=== PATIENT | male | born 1970 | race Caucasian/White ===

== ENCOUNTER 2017-01-04 20:30 | Emergency (ER) | payer BC ==
[2017-01-04] MEDS ORDERED: HYDROmorphone 1 MG/ML 1 ML SYRINGE IVP STA (21:08)
[2017-01-04] MEDS ORDERED: SODIUM CHLORIDE 0.9% 500 ML IV STA (21:08)
--- NOTE | 2017-01-04 21:12 | ED ---
Upper Extremity HPI - General Chief Complaint: Extremity Injury, Upper Stated Complaint: R arm injury Time Seen by Provider: 01/04/17 21:03 Source: patient Mode of arrival: ambulatory Limitations: no limitations - History of Present Illness Initial Comments: 6-year-old man who presents with complaint that he is having right shoulder pain. The patient has history of previous shoulder dislocation and states this feels similar. Just before arrival here he was any active playing volleyball, attempted to serve the ball with his right arm and felt a pop. He then had severe right shoulder pain and inability to move the arm without worsening the pain. The patient states it was identical to previous dislocation. Patient denies numbness of the arm though there is some tingling of the hand. No loss of strength of the hand. He is right-handed. MD Complaint: Injury to:: right, shoulder -: minutes(s) Other Extremity Injury: Shoulder: Right Other Injuries: none Handedness: right Severity scale (1-10): 10 Improves With: immobilization Worsens With: movement of extremity Context: sports-related injury Associated Symptoms: heard/felt popping sensat - Related Data Home Medications Medication Instructions Recorded Confirmed Ibuprofen [Motrin] 800 mg PO ONCE PRN 01/04/17 01/04/17 Previous Rx's Medication Instructions Recorded Hydrocodone/Acetaminophen [[place] 1 each PO Q6HR PRN #20 tab 01/04/17 5-325] Ibuprofen [Motrin] 600 mg PO Q8HR PRN #20 tab 01/04/17 Allergies Allergy/AdvReac Type Severity Reaction Status Date / Time No Known Allergies Allergy Verified 01/04/17 21:32 Review of Systems ROS Statement: Those systems with pertinent positive or pertinent negative responses have been documented in the HPI. ROS Other: All systems not noted in ROS Statement are negative. Respiratory: Denies: cough, dyspnea Cardiovascular: Denies: chest pain Musculoskeletal: Reports: as per HPI, arthralgia Skin: Denies: rash Neurological: Denies: weakness, numbness, paresthesias Past Medical History Past Medical History: No Reported History History of Any Multi-Drug Resistant Organisms: None Reported Past Surgical History: Orthopedic Surgery Additional Past Surgical History / Comment(s): bilateral knee Past Psychological History: No Psychological Hx Reported Smoking Status: Never smoker Past Alcohol Use History: Occasional Past Drug Use History: None Reported General Exam Limitations: no limitations General appearance: alert, in distress (Patient does appear to be having shoulder pain.) Head exam: Present: atraumatic, normocephalic Neck exam: Present: full ROM. Absent: tenderness Respiratory exam: Present: normal lung sounds bilaterally. Absent: respiratory distress, wheezes, rales, rhonchi, stridor Cardiovascular Exam: Present: regular rate, normal rhythm, normal heart sounds, other (Radial pulses and capillary refill normal to the right hand.) Extremities exam: Present: tenderness, normal capillary refill, other (There does appear to be an evidence right shoulder dislocation with step off at the shoulder. Patient refuses active and passive range of motion. Exam of the remainder of the extremity is within normal limits. Intact pulses, strength and sensation of the hand.). Absent: normal inspection, full ROM Back exam: Absent: vertebral tenderness Neurological exam: Present: alert. Absent: motor sensory deficit Skin exam: Present: warm, dry, intact, normal color. Absent: rash Course Vital Signs 01/04/17 01/04/17 01/04/17 20:33 21:46 21:47 Temperature 99.6 F Pulse Rate 66 69 64 Respiratory 18 18 18 Rate Blood Pressure 113/66 120/69 145/70 O2 Sat by Pulse 97 100 100 Oximetry Procedures - Orthopedic Joint Reduction Joint #1 Consent Obtained: verbal consent Time Out Performed: Yes Side: right Joint Reduction Location: shoulder Analgesia: procedural sedation Shoulder Technique Used (if applicable): external rotation Post-Reduction Neuro Exam: intact Post-Reduction Vascular Exam: intact Post Reduction X-Ray Obtained: Yes Post Reduction X-Ray Results: reduced Splint Applied: Yes (Sling) Patient Tolerated Procedure: well - Procedural Sedation Procedural Sedation Start Time: 21:53 Procedural Sedation Stop Time: 22:10 Indications: fracture/dislocation reduction ASA Class: I Mallampati Airway Score: 2 Preparation: groundwater monitoring technician applied, pulse oximeter, supplemental O2 applied, suction/airway equipment at bedside, IV secured Complications: none Patient Tolerated Procedure: well Disposition Clinical Impression: Dislocation of shoulder region Disposition: HOME SELF-CARE Condition: Good Instructions: Shoulder Dislocation (ED) Prescriptions: Hydrocodone/Acetaminophen [[place] 5-325] 1 each PO Q6HR PRN #20 tab PRN Reason: Pain Ibuprofen [Motrin] 600 mg PO Q8HR PRN #20 tab PRN Reason: Pain Referrals: Som Calvillo MD [Primary Care Provider] - 1-2 days Srinath Mayer MD [STAFF PHYSICIAN] - 1-2 days
[2017-01-04] MEDS ORDERED: ETOMIDATE 2 MG/ML 10 ML VIAL IVP STA (21:38)
--- NOTE | 2017-01-04 21:40 | XR ---
EXAMINATION TYPE: XR shoulder complete RT DATE OF EXAM: 01/04/2017 COMPARISON: NONE HISTORY: Pain and injury TECHNIQUE: 2 views FINDINGS: There is anterior inferior dislocation of the humeral head. I see no fracture. IMPRESSION: Anterior dislocation of the shoulder joint.
[2017-01-04 22:29] VITALS: RESP 16
[2017-01-04 22:37] VITALS: BP 125/72; PULSE 72; TEMP 97.9
--- NOTE | 2017-01-04 22:54 | XR ---
EXAM: XR Right Shoulder, 1 View CLINICAL HISTORY: Reason: post-reduction TECHNIQUE: Single frontal view of the right shoulder. COMPARISON: None available. FINDINGS: Bones/joints: No acute displaced fracture is seen. No definite evidence of dislocation is seen on this single frontal view although assessment is limited by the single projection. There is slight offset in alignment of the acromioclavicular joint without significant widening seen, and with undersurface spurring of the acromion noted. Soft tissues: No radiopaque foreign body is seen. IMPRESSION: 1. No acute displaced fracture or gross dislocation is seen on this single frontal view. 2. Slight offset of alignment at the acromioclavicular joint which may be projectional although the possibility of an acromioclavicular joint injury is not excluded. Correlate clinically. 3. No priors.
== END 2017-01-04 22:45 | disposition home or self-care (01) ==
LOC: EC 20:30
DX: S43.004A Unspecified dislocation of right shoulder joint, initial encounter (principal); X50.1XXA Overexertion from prolonged static or awkward postures, initial encounter; Y93.68 Activity, volleyball (beach) (court)
CPT/HCPCS: 73020; 73030; 99283; 23650; 99152; 96374; J1170